=== PATIENT | female | born 1960 | race Caucasian/White ===

== ENCOUNTER 2017-12-19 09:07 | Day surgery (SDC) | payer MEDICARE, MEDICAID ==
[2017-12-19 12:10] VITALS: BMI 28.1
[2017-12-19] MEDS ORDERED: Midazolam 2 MG/2 ML VIAL ONE (12:52)
--- NOTE | 2017-12-19 13:17 | CP.SDSHP ---
Same Day Surgery H & P - History Proposed Procedure: CT guided core biopsy of abdominal mass Pre-Op Diagnosis: abdominal mass - Allergies Allergies: Allergies Iodine and Iodide Containing Produc Allergy (Intermediate, Verified 11/23/17 10: 44) "SKIN PEELS FROM HANDS" - Physical Exam Mental Status: Alert & Oriented x3 Neuro: WNL Heart: WNL Lungs: WNL - Impression Impression: Pt with larger abdominal mass anterior to left psoas muscle. Plan CT guided core biopsy. Informed consent obtained. Pt. Evaluated Today:Candidate for Anesthesia & Procedure: Yes (ASA 3 Malampati 3) - Date & Time Date: 12/19/17 Time: 12:45 Short Stay Discharge - Short Stay Discharge Admitting Diagnosis/Reason for Visit: RETRO PERITONEAL MASS Disposition: HOME/ ROUTINE
--- NOTE | 2017-12-19 13:20 | PCM.SURG1 ---
Surgeon's Initial Post Op Note - Surgeon's Notes Surgeon: Darryl Smallwood MD Biometrics Head: NONE Type of Anesthesia: IV Sedation Pre-Operative Diagnosis: abdominal mass Operative Findings: 4 cm left anterior abdominal mass with areas of high density within Post-Operative Diagnosis: abdominal mass Operation Performed: CT guided core biopsy of abdominal mass. Four 20 g core specimen removed and sent for histology. Specimen/Specimens Removed: 20 - gauge core x 4 Estimated Blood Loss: EBL {In ML}: 1 Blood Products Given: N/A Drains Used: No Drains Post-Op Condition: Fair Date of Surgery/Procedure: 12/19/17 Time of Surgery/Procedure: 13:15
[2017-12-19 15:26] VITALS: TEMP 97.5
[2017-12-19 15:28] VITALS: BP 135/70; PULSE 74; RESP 17; O2SAT 98
--- NOTE | 2017-12-20 12:45 | CT ---
PROCEDURE: < Date of procedure: 12/19/2017 Procedure: 1. CT-guided biopsy of abdominal mass, CPT [address] guidance for procedure, [address] Radiation: 751 mGy-cm Medications: The patient sedated by the anesthesiologist with IV sedation, 8cc 1 percent lidocaine HISTORY: Patient with enlarged abdominal mass anterior to the left psoas muscle. TECHNIQUE: Following informed consent and procedure time-out, the patient was placed prone on the CT table and noncontrast CT scan was performed. The non contrast CT scan confirmed the presence of a 4 centimeter mass anterior to the left psoas muscle. A skin localizer was placed on patient's back and repeat CT scan performed. Her back was marked, prepped, and draped in the usual sterile fashion. After the patient was sedated by the anesthesiologist and the skin anesthetized with 1% lidocaine, a 20 gauge core biopsy needle was advanced percutaneously under CT guidance towards mass. Once the needle was confirmed to be within the mass, multiple core biopsy specimens were obtained and sent for routine pathology. A post biopsy CT scan showed no hematoma. IMPRESSION: CT-guided biopsy core biopsy of left abdominal mass anterior to the left psoas muscle.
== END 2017-12-19 15:30 | disposition home or self-care (01) ==
LOC: C.SPRAD 09:07
PROVIDERS: ATTEND Radiology Vascular & Interventional Radiology
DX: R19.00 Intra-abdominal and pelvic swelling, mass and lump, unspecified site (principal); Z88.8 Allergy status to other drugs, medicaments and biological substances; C96.9 Malignant neoplasm of lymphoid, hematopoietic and related tissue, unspecified; C78.6 Secondary malignant neoplasm of retroperitoneum and peritoneum
CPT/HCPCS: 38505; 77012; 82948; 88305; J2250; J3010

== ENCOUNTER 2018-10-10 08:57 | Outpatient (CLI) | payer MEDICARE, MEDICAID | END 2018-10-10 08:58 | disposition home or self-care (01) | LOC: C.CTH 08:57 | DX: C18.9 Malignant neoplasm of colon, unspecified (principal) ==

== ENCOUNTER 2018-10-24 10:41 | Outpatient (CLI) | payer MEDICARE, MEDICAID | END 2018-10-24 10:42 | disposition home or self-care (01) | LOC: C.MAMMO 10:41 | DX: Z12.31 Encounter for screening mammogram for malignant neoplasm of breast (principal) ==

== ENCOUNTER 2019-01-29 09:51 | Outpatient (CLI) | payer MEDICARE, MEDICAID | END 2019-01-29 09:52 | disposition home or self-care (01) | LOC: C.CTH 09:51 | DX: C18.9 Malignant neoplasm of colon, unspecified (principal) ==